=== PATIENT | male | born 1995 | race Caucasian/White ===

== ENCOUNTER 2022-05-10 10:56 | Emergency (ER) | payer BC ==
[~2022-05-10] VITALS: Ht 165.1 cm; Wt 74.8 kg
[2022-05-10 10:58] VITALS: BP 146/107
[2022-05-10] MEDS ORDERED: KETOROLAC TROMETHAMINE INJ 30 MG/ML VIAL ONE (12:54)
[2022-05-10] MEDS: KETOROLAC TROMETHAMINE INJ 30 MG/ML VIAL IM ONE (12:59)
--- NOTE | 2022-05-10 13:00 | NUR ---
[facility] GIVEN IM ON LEFT DELTOID, STEPHAN WELL
--- NOTE | 2022-05-10 13:02 | NUR ---
[facility] ETA 60 MINS BACK TO [facility] [place] [facility].
--- NOTE | 2022-05-10 13:57 | NUR ---
EMT AT BEDSIDE TO [facility]
--- NOTE | 2022-05-10 14:04 | NUR ---
medically cleared. transported to [facility] in stable condition.
== END 2022-05-10 14:06 ==
LOC: ER 11:03
DX: S29.012A Strain of muscle and tendon of back wall of thorax, initial encounter (principal); W01.0XXA Fall on same level from slipping, tripping and stumbling without subsequent striking against object, initial encounter; Y93.89 Activity, other specified; Y92.89 Other specified places as the place of occurrence of the external cause; Y99.8 Other external cause status
CPT/HCPCS: 99283; 96372; J1885